=== PATIENT | female | born 1975 | race Caucasian/White ===

== ENCOUNTER → 2016-06-24 | Outpatient (CLI) | payer BC ==
--- OUTSIDE RECORDS SUMMARY | 2016-06-24 11:29 | XMS REPORT ---
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
--- NOTE | 2016-06-24 12:59 | Diagnostic Imaging Report ---
PROCEDURE: MRI right lower extremity without contrast. TECHNIQUE: Multiplanar, multisequence non contrast-enhanced MRI of the right lower extremity was accomplished. INDICATION: Right thigh pain. There are no prior studies available for comparison. FINDINGS: By history, the patient has pain involving the right thigh. Markers were placed over the area of concern. The superior marker lies lateral to the greater trochanter while the inferior marker is at the level of the mid femur. There is no abnormal signal arising from the soft tissues to suggest a mass or abscess. There is no sign of edema of the subcutaneous fat or of the muscle either. The femur itself is unremarkable for an acute abnormality. The right hip joint appears to be fairly well maintained. The knee joint was not included in its entirety. There is no abnormality of the visualized left femur or thigh either. IMPRESSION: There is no acute abnormality of the soft tissues along the lateral aspect of the right thigh to account for the patient's pain. There is no sign of a bony injury either. Dictated by: Dictated on workstation # [id number]
== END ==
LOC: RAD 11:25
PROVIDERS: ATTEND Orthopaedic Surgery
DX: M79.651 Pain in right thigh (principal)

== ENCOUNTER → 2017-01-09 | Outpatient (CLI) | payer BC ==
--- NOTE | 2017-01-12 14:24 | Diagnostic Imaging Report ---
Bilateral screening mammogram 2D views with tomosynthesis. The current study was also evaluated with a Computer Aided Detection (CAD) system. INDICATION: Screening. No current complaints stated on the questionnaire. COMPARISON: 05/06/2012. FINDINGS: The breasts are composed of heterogeneously dense parenchyma which may decrease mammographic sensitivity. There is no mass, architectural distortion, or suspicious cluster of calcifications seen. Allowing for technique and positional differences, no suspicious change is seen. IMPRESSION: Dense breasts with no definite change. ACR BI-RADS Category 2: Benign findings. Result letter will be mailed to the patient. Note: At least 10% of breast cancer is not imaged by mammography. Dictated by: Dictated on workstation # [id number]
== END ==
LOC: RAD 09:34
PROVIDERS: ATTEND Obstetrics & Gynecology
DX: Z12.31 Encounter for screening mammogram for malignant neoplasm of breast (principal)
CPT/HCPCS: 77067

== ENCOUNTER → 2018-01-15 | Outpatient (CLI) | payer BC ==
--- NOTE | 2018-01-15 19:33 | Diagnostic Imaging Report ---
The current study was also evaluated with a Computer Aided Detection (CAD) system. 3-D tomosynthesis was also performed and reviewed. Digital mammogram bilateral screening This study was compared to the prior exams of 01/09/2017 and 05/06/2012. At this time, there are no current complaints. The current study was also evaluated with a Computer Aided Detection (CAD) system. FINDINGS: The fibroglandular tissue in both breasts is heterogeneously dense. This does limit the sensitivity of this exam. Overall, there does not appear to have been any significant change when compared to the prior study. No primary or secondary sign of malignancy is noted. IMPRESSION: There is no radiographic evidence for malignancy. ACR BI-RADS Category 1: Negative. Result letter will be mailed to the patient. Note: At least 10% of breast cancer is not imaged by mammography. Dictated by: Dictated on workstation # [id number]
== END ==
LOC: RAD 07:45
PROVIDERS: ATTEND Obstetrics & Gynecology
DX: Z12.31 Encounter for screening mammogram for malignant neoplasm of breast (principal)
CPT/HCPCS: 77067

== ENCOUNTER → 2019-01-17 | Outpatient (CLI) | payer BC ==
--- NOTE | 2019-01-18 09:29 | Diagnostic Imaging Report ---
INDICATION: Digital mammogram bilateral screening. This study was compared to prior exams of 01/15/2018, 01/09/2017 and 05/06/2012. At this time, there are no current complaints. The current study was also evaluated with a Computer Aided Detection (CAD) system. FINDINGS: The fibroglandular tissue in both breasts is heterogeneously dense. This does limit the sensitivity of this exam. Overall, there does not appear to have been any significant change when compared to the prior study. No primary or secondary sign of malignancy is noted. IMPRESSION: There is no radiographic evidence for malignancy. ACR BI-RADS Category 1: Negative. Result letter will be mailed to the patient. Note: At least 10% of breast cancer is not imaged by mammography. Dictated by: Dictated on workstation # [id number]
== END ==
LOC: RAD 07:38
PROVIDERS: ATTEND Obstetrics & Gynecology
DX: Z12.31 Encounter for screening mammogram for malignant neoplasm of breast (principal)
CPT/HCPCS: 77067

== ENCOUNTER → 2020-01-20 | Outpatient (CLI) | payer BC ==
--- NOTE | 2020-01-20 09:44 | Diagnostic Imaging Report ---
INDICATION: Routine screening. COMPARISON is made to prior mammograms 01/17/2019 and 01/15/2018. 2-D and 3-D bilateral screening mammography was performed with CAD. Both breasts are heterogeneously dense, limiting the sensitivity of mammography. The parenchymal pattern is stable. No mass or malignant appearing microcalcifications are seen. Axillae are unremarkable. IMPRESSION: BI-RADS Category 1 No mammographic features suspicious for malignancy are identified. Dictated by: Dictated on workstation # [id number]
== END ==
LOC: RAD 07:30
PROVIDERS: ATTEND Obstetrics & Gynecology
DX: Z12.31 Encounter for screening mammogram for malignant neoplasm of breast (principal)
CPT/HCPCS: 77063; 77067

== ENCOUNTER → 2021-02-01 | Outpatient (CLI) | payer BC ==
--- NOTE | 2021-02-01 14:23 | Diagnostic Imaging Report ---
Indication: Routine screening. Comparison is made with prior mammogram 01/20/2020 and 01/17/2019. 2-D and 3-D bilateral screening mammography was performed with CAD. Both breasts are heterogeneously dense, limiting the sensitivity of mammography. The parenchymal pattern is stable. No mass or malignant-appearing microcalcifications are seen. Axillae are unremarkable. IMPRESSION: BI-RADS Category 1 No mammographic features suspicious for malignancy are identified. ACR BI-RADS Category 1: Negative. Result letter will be mailed to the patient. Note: At least 10% of breast cancer is not imaged by mammography. Dictated by: Dictated on workstation # [id number]
== END ==
LOC: RAD 07:45
PROVIDERS: ATTEND Obstetrics & Gynecology
DX: Z12.31 Encounter for screening mammogram for malignant neoplasm of breast (principal)
CPT/HCPCS: 77063; 77067

== ENCOUNTER → 2022-02-04 | Outpatient (CLI) | payer BC ==
--- NOTE | 2022-02-04 14:56 | Diagnostic Imaging Report ---
Indication: Routine screening. Comparison is made with prior mammogram 02/01/2021 and 01/20/2020. 2-D and 3-D bilateral screening mammography was performed with CAD. CAD is utilized. The current study was also evaluated with a Computer Aided Detection (CAD) system. Both breasts are heterogeneously dense, limiting the sensitivity of mammography. Benign nodule in the upper left breast posteriorly is noted, consistent with intraparenchymal lymph node. No spiculated mass or malignant-appearing microcalcifications are seen. Axillae are unremarkable. IMPRESSION: BI-RADS Category 2 No mammographic features suspicious for malignancy are identified. ACR BI-RADS Category 2: Benign findings. Result letter will be mailed to the patient. Note: At least 10% of breast cancer is not imaged by mammography. Dictated by: Dictated on workstation # [id number]
== END ==
LOC: RAD 12:46
PROVIDERS: ATTEND Obstetrics & Gynecology
DX: Z12.31 Encounter for screening mammogram for malignant neoplasm of breast (principal)
CPT/HCPCS: 77063; 77067

== ENCOUNTER 2022-12-11 09:24 | Outpatient (CLI) | payer BC ==
[~2022-12-11] VITALS: Ht 165.1 cm; Wt 75.5 kg
[2022-12-11] MEDS ORDERED: NORG1TAB77 PO (14:15)
[2022-12-11] MEDS ORDERED: FLUO20CA42 PO (14:15)
[2022-12-11] MEDS ORDERED: ATOR20TA66 PO (14:15)
== END 2022-12-11 14:18 | disposition home or self-care (01) ==
LOC: PREOP 09:24
PROVIDERS: ATTEND Internal Medicine
DX: Z01.818 Encounter for other preprocedural examination (principal)

== ENCOUNTER 2022-12-12 09:51 | Day surgery (SDC) | payer BC ==
[~2022-12-12] VITALS: Ht 165.1 cm; Wt 75.5 kg
--- NOTE | 2022-12-12 08:19 | HISTORY AND PHYSICAL ---
COLONOSCOPY HISTORY AND PHYSICAL HISTORY OF PRESENT ILLNESS: The patient is a 47-year-old white female seen for initial patient evaluation being set up for her first screening colonoscopy. She is deemed to be of average risk because she is not aware of any family history for colon cancer. Denies bright red blood per rectum, melena or change in bowel habits. She is on control, has a history of hyperlipidemia and is on fluoxetine, most notably for irritability. She reports that irritability has been getting worse. She only cycles off control 3 or 4 times a year and that her symptoms are worse in regards to irritability around. She has noted that sexual relations temporarily improve her symptoms. There has been no increase stress at work. She denies depressive associated symptoms other than guilt for her who takes the brunt in regards to the irritability. She denies any vasomotor symptoms. She has been having difficulty with weight management. Does report that she drinks a couple of cans of soda. Otherwise, they rarely eat out. She has not been getting any regular physical activity except for some intermittent yard work she used to run on a regular basis. FAMILY HISTORY: Both parents are living at the age of 71. Father has no health problems. Mother has a history of what sounds like Zena's thyroiditis, on thyroid replacement. She has 2 sisters and 1 brother. No history of malignancy or coronary artery disease in the immediate family. SOCIAL HISTORY: She does not smoke. No significant alcohol intake. 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 PAST SURGICAL HISTORY: She reports no past surgeries. MEDICATIONS: On admission include fluoxetine 20 mg daily, atorvastatin 20 mg daily, and control therapy like combined estrogen progesterone that she cycles 3-4 times yearly to have a period continuous in between. PHYSICAL EXAMINATION: GENERAL: Reveals a pleasant white female, appears to be in no acute distress. VITAL SIGNS: A 5 feet 5 inches tall, 166 pounds, blood pressure 132/94. HEENT: Unremarkable. Oral cavity clear. Tonsils 2+. No erythema. NECK: Revealed no JVD, adenopathy or bruits. Ear canals clear with normal TMs. CHEST: Clear to auscultation. CARDIOVASCULAR: Reveals regular rate and rhythm without murmur, S3, or S4. ABDOMEN: Soft, supple without mass, organomegaly, or tenderness. EXTREMITIES: No cyanosis, clubbing or edema. SKIN: Evaluation reveals no suspicious nevi. ASSESSMENT AND PLAN: 1. The patient is being set up for screening colonoscopy, first deemed to be of average risk. Prep instructions were given and questions were answered. 2. Hyperlipidemia. The patient was sent for chemistry panel, lipid panel, CBC and TSH considering family history for thyroid disease. 3. Increase in irritability. She will be seeing Dr. Blesdoe again. Did discuss she could increase fluoxetine. Discussed nonmedication management, strongly advocating that she increase physical activity. She is to run and advised to start brisk walking and if she so desired, could ease into running. Advised she give up soda as this does sometimes aggravate reflux symptoms for which she does not take any regular medication. We will see her back in 6 months for routine followup. As discussed above, she has had some occasional small volume urinary incontinence with sneezing consistent with with stress urinary incontinence. Discussed timed voiding issues at this point. If symptoms are getting worse, can bring this up with Dr. Bledsoe. Consider evaluation for surgical management. Job ID: [id number] DocumentID: [id number] Dictated Date: 12/01/2022 15:35:08 Clinical Technician Date: 12/01/2022 16:02:00 Dictated By: KIMBERLY AMOS MD MTDD
[~2022-12-12 09:51] MED LIST: ATOR20TA66 PO; FLUO20CA42 PO; NORG1TAB77 PO
[2022-12-12] MEDS ORDERED: LACTATED RINGERS 1,000 ML 1,000 ML IV STA (09:53)
[2022-12-12 10:20] VITALS: BP 160/92
--- NOTE | 2022-12-12 10:35 | Pre-Op Note & Conscious Sedat ---
Pre-Operative Progress Note Date H&P Reviewed: Dec 12, 2022 Time H&P Reviewed: 10:34 History & Physical: H&P Reviewed, Patient Examed, No changes noted Pre-Op Diagnosis: screening Moderate Sedation PreProcedure ASA Score 2 Airway Lungs Heart ASA score ASA 1: a normal healthy patient ASA 2: a patient with a mild systemic disease (mid diabetes, controlled hypertension, obesity ASA 3: a patient with a severe systemic disease that limits activity (angina, COPD, prior Myocardial infarction) ASA 4: a patient with an incapacitating disease that is a constant threat to life (CHF, renal failure) ASA 5: a moribund patient not expected to survive 24 hrs. (ruptured aneurysm) ASA 6: a declared brain- patient whose organs are being harvested. For emergent operations, add the letter E after the classification Mallampati Classification Grade 1 Sedation Plan Analgesia, Amnesia, Plan communicated to team members, Discussed options with patient/fam, Discussed risks with patient/fam The patient is an appropriate candidate to undergo the planned procedure, sedation, and anesthesia. The patient immediately re-assessed prior to indication. KIMBERLY AMOS MD Dec 12, 2022 10:35
--- NOTE | 2022-12-12 11:54 | Progress Note-Post Operative ---
Post-Procedure Note Physician (s)/Police Specialist (s) Physician KIMBERLY AMOS MD Pre-Procedure Diagnosis Pre-Procedure Diagnosis: screening Post-Procedure Diagnosis Post-operative diagnosis: Prior to undergoing colonoscopy digital rectal evaluation was performed. Anal sphincter tone was normal and the perianal reflex intact. No abnormalities noted on digital inspection of the anal canal or distal rectal vault. The colonoscope was then inserted into the rectum and under direct visualization advanced to the cecum. The cecum was identified by the indication of the ileocecal valve and the cecal strap. Photographic documentation was obtained. Careful inspection was made as the colonoscope was withdrawn. Quality the prep was good. Findings: There are no evidence for internal or external hemorrhoids. The rectum sigmoid colon descending colon splenic flexure transverse colon hepatic flexure ascending colon and cecum were unremarkable with no evidence for neoplasia or diverticular disease. A/P 1. Normal colonoscopy to cecum. Would advocate consideration for repeat screening colonoscopy in 10 years. KIMBERLY AMOS MD Dec 12, 2022 11:54
[2022-12-12 11:55] VITALS: BP 97/57
[2022-12-12 12:00] VITALS: BP 100/59
[2022-12-12 12:05] VITALS: BP 103/64
[2022-12-12 12:25] VITALS: BP 103/64
--- NOTE | 2022-12-12 14:38 | Anesthesia-General Post-Op ---
MAC Patient Condition Mental Status/LOC: Same as Preop Cardiovascular: Satisfactory Nausea/Vomiting: Absent Respiratory: Satisfactory Pain: Controlled Complications: Absent Post Op Complications Complications None Follow Up Care/Instructions Patient Instructions None needed. Anesthesiology Discharge Order Discharge Order Patient is doing well, no complaints, stable vital signs, no apparent adverse anesthesia problems. No complications reported per nursing. YONAS BERKOWITZ CRNA Dec 12, 2022 14:38
== END 2022-12-12 12:35 | disposition home or self-care (01) ==
LOC: ENDO 09:51
PROVIDERS: ATTEND Internal Medicine
DX: Z12.11 Encounter for screening for malignant neoplasm of colon (principal); E78.5 Hyperlipidemia, unspecified; R45.4 Irritability and anger
CPT/HCPCS: 84703

== ENCOUNTER → 2023-02-09 | Outpatient (CLI) | payer BC ==
--- NOTE | 2023-02-09 10:55 | Diagnostic Imaging Report ---
INDICATION: Routine screening. COMPARISON: 02/04/2022 and 02/01/2021. TECHNIQUE: 2D and 3D bilateral screening mammography was performed with CAD. FINDINGS: Both breasts are heterogeneously dense, limiting the sensitivity of mammography. No mass or malignant-appearing microcalcifications are seen. Axillae are unremarkable. IMPRESSION: No mammographic features suspicious for malignancy are identified. ACR BI-RADS Category 1: Negative. Result letter will be mailed to the patient. Note: At least 10% of breast cancer is not imaged by mammography. Dictated by: Dictated on workstation # [id number]
== END ==
LOC: RAD 07:30
PROVIDERS: ATTEND Obstetrics & Gynecology
DX: Z12.31 Encounter for screening mammogram for malignant neoplasm of breast (principal)
CPT/HCPCS: 77063; 77067